=== PATIENT | male | born 2000 | race Caucasian/White ===

== ENCOUNTER 2023-02-13 21:38 | Emergency (ER) | payer OTHER ==
[~2023-02-13] VITALS: Ht 182.8 cm; Wt 78.5 kg
== END 2023-02-13 23:58 | disposition home or self-care (01) ==
LOC: ED 21:38
DX: S93.492A Sprain of other ligament of left ankle, initial encounter (principal); X50.1XXA Overexertion from prolonged static or awkward postures, initial encounter; Y93.89 Activity, other specified; Y92.89 Other specified places as the place of occurrence of the external cause; Y99.8 Other external cause status